=== PATIENT | female | born 1950 | race Caucasian/White ===

== ENCOUNTER 2021-01-07 13:09 | Outpatient (CLI) | payer MEDICARE, SELFPAY ==
--- NOTE | 2021-01-07 13:17 | XR_ITS ---
WS: [id number] CHEST 2 VIEWS HISTORY: CHRONIC OBSTRUCTIVE PULMONARY DISEASE COMPARISON: 08/04/2016 Lungs: Clear with no abnormality. No pleural effusion or pneumothorax. Cardiac size: Normal. Mediastinum/Aorta: Mild atherosclerosis aorta. No mediastinal widening. Bones: Numerous anchors in the RIGHT humeral head from rotator cuff repair. Moderate size hiatal hernia. XR/XR chest 2V* [id number] IMPRESSION: Stable chest. No acute cardiopulmonary disease.
== END 2021-01-07 13:10 | disposition home or self-care (01) ==
LOC: RADWPI 13:15
PROVIDERS: PCP Nurse Practitioner Family; Visit Provider Nurse Practitioner Family
DX: J44.9 Chronic obstructive pulmonary disease, unspecified (principal)
CPT/HCPCS: 71046

== ENCOUNTER 2021-03-30 02:24 | Emergency (ER) | payer MEDICARE, SELFPAY ==
[2021-03-30 02:29] VITALS: BP 166/81; PULSE 64; RESP 18; TEMP 36.7; O2SAT 97; BMI 29.7
--- NOTE | 2021-03-30 02:58 | XRR_ITS ---
PROCEDURE INFORMATION: Exam: XR Chest Exam date and time: 03/30/2021 3:37 AM Age: 70 years old Clinical indication: Other: Dizzy TECHNIQUE: Imaging protocol: XR of the chest. Views: 1 view. COMPARISON: CR XR chest 2V* [id number] 01/07/2021 1:21 PM FINDINGS: Lungs: See Heart/Mediastinum finding. Pleural spaces: Unremarkable. No pleural effusion. No pneumothorax. Heart/Mediastinum: Prominent hiatal hernia is present. Some strandy opacities are seen in the retrocardiac region likely representing atelectasis. Bones/joints: Unremarkable. XR/XR chest 1V portable [id number] IMPRESSION: 1. There are no acute chest findings. 2. Prominent hiatal hernia. Probable atelectasis superimposes over the hernia sac in the retrocardiac region.
--- NOTE | 2021-03-30 02:58 | ECG_ITS ---
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 Measurements Intervals [place] Rate: 57 P: 24 HI: 190 QRS: -17 QRSD: 112 T: 10 QT: 405 QTc: 397 Interpretive Statements SINUS BRADYCARDIA MODERATE INTRAVENTRICULAR CONDUCTION DELAY [110+ ms QRS DURATION] VOLTAGE CRITERIA FOR LVH [MEETS CRITERIA IN ONE OF: R(aVL), S(V1), R(V5), R(V5/V6)+S(V1)] No previous ECG available for comparison Electronically Signed On 03-30-2021 11:00:06 CDT by Davey Kim M.D. [id number]
[2021-03-30 03:39] VITALS: BP 176/96; PULSE 59; RESP 18; O2SAT 98
[2021-03-30 04:00] LABS: Hemoglobin 12.5 g/dL (11.5-15.3); Mean Corpuscular Volume 94.1 fL (81-99); Nucleated Red Blood Cells % 0 %; Red Cell Distribution Width 13.8 % (12.1-15.1)
[2021-03-30 04:02] VITALS: BP 147/85; BP 152/72; BP 162/85; PULSE 60; PULSE 63; PULSE 65
[2021-03-30 04:02] LABS: Basophils # 0.1 10^3/uL (0.0-0.1); Basophils % 0.8 %; Eosinophils # 0.1 10^3/uL (0.0-0.8); Eosinophils % 1.3 %; Hematocrit 38.6 % (37.0-47.0); Lymphocytes % 48.4 %; Mean Corpuscular HGB Conc 32.4 g/dL (30.0-36.0); Mean Corpuscular Hemoglobin 30.5 pg (28.0-34.0); Monocytes # 1.2 10^3/uL (0.2-0.9); Monocytes % 11.5 %; Neutrophils # 3.86 10^3/uL (1.8-7.7); Neutrophils % 37.8 %; Platelet Count 263 10^3/cmm (130-400); White Blood Count 10.2 10^3/uL (4.0-10.0)
[2021-03-30 04:25] LABS: Troponin(5th) Baseline 7 ng/L (0-10)
[2021-03-30 04:27] LABS: Alanine Aminotransferase 14 U/L (0-33); Albumin Level 4.4 g/dL (3.5-5.2); Alkaline Phosphatase 59 IU/L (35-105); Anion Gap 15.3 (5-19); Aspartate Amino Transferase 21 U/L (0-32); Blood Urea Nitrogen 26 mg/dL (8-23); Calcium 9.4 mg/dL (8.5-10.5); Carbon Dioxide 26 mmol/L (22-29); Chloride 100 mmol/L (98-107); Glomerular Filtration Rate 71.3 mL/min (90-130); Glucose 105 mg/dL (65-115); Osmolality Calculated 287 mOsm/kg (285-295); Potassium 5.3 mmol/L (3.5-5.1); Sodium 136 mmol/L (136-145); Total Bilirubin 0.3 mg/dL (0.15-1.2); Total Protein 6.4 g/dL (6.6-8.7)
[2021-03-30 04:40] LABS: Slide Review Slide Review Perform
[2021-03-30 04:51] VITALS: BP 128/64; PULSE 56; RESP 16; O2SAT 99
--- NOTE | 2021-03-30 06:46 | W.ED.DIZZY ---
HPI - Dizziness General: Chief Complaint: Dizziness Stated Complaint: high bp/dizzy/n Time Seen by Provider: 03/30/21 03:27 History of Present Illness: HPI Narrative: 70-year-old female who has been having trouble with her blood pressure. She was in her PCP office on with high blood pressure. She was given clonidine in the office which helped her blood pressure. She was then placed on spironolactone which has been a new drug for her. She currently takes valsartan, metoprolol, and spironolactone. Her blood pressure had been doing better, but this evening was elevated. She began to get dizzy with this. She denied any chest discomfort, shortness of breath, vision changes, or weakness. Dizziness seems to have resolved now. Her blood pressure was still high on arrival though. MD elicited complaint: dizziness and lightheadedness Pertinent past history: other Onset (ago): hour(s) Timing: gradual onset Severity: moderate Description: sense of movement and lightheadedness History of similar symptoms: Yes Exacerbating factors: nothing Course Vital Signs: Vital signs: Vital Signs Temperature 98.1 F 03/30/21 02:29 Pulse Rate 56 L 03/30/21 04:51 Respiratory Rate 16 03/30/21 04:51 Blood Pressure 128/64 03/30/21 04:51 Pulse Oximetry 99 03/30/21 04:51 MDM - Dizziness MDM Narrative: Medical decision making narrative: Blood pressure self resolved. Symptoms resolved as well. Laboratory is benign, save a minimally elevated potassium which is likely due to starting spironolactone. Patient was counseled that a BMP needs to be repeated later this week to make sure the calcium stays stable as well as the renal function she will watch her blood pressures twice daily, then return for any return of symptoms. She will be prescribed clonidine for breakthrough hypertension. She has been intolerant to JOSE LUIS inhibitors and amlodipine in the past Lab Data: Labs: Lab Results 03/30/21 03/30/21 03/30/21 Range/Units 03:50 03:50 03:50 WBC 10.2 H (4.0-10.0) 10^3/ uL RBC 4.10 (4.1-5.3) 10^6/u L Hgb 12.5 (11.5-15.3) g/dL Hct 38.6 (37.0-47.0) % MCV 94.1 (81-99) fL MCH 30.5 (28.0-34.0) pg MCHC 32.4 (30.0-36.0) g/dL RDW 13.8 (12.1-15.1) % Plt Count 263 (130-400) 10^3/c mm MPV 11.0 H (7.4-10.4) fL Neut % (Auto) 37.8 % Lymph % (Auto) 48.4 % Mower % (Auto) 11.5 % Eos % (Auto) 1.3 % Baso % (Auto) 0.8 % Neut # (Auto) 3.86 (1.8-7.7) 10^3/u L Lymph # (Auto) 5.0 H (0.8-4.8) 10^3/u L Mower # (Auto) 1.2 H (0.2-0.9) 10^3/u L Eos # (Auto) 0.1 (0.0-0.8) 10^3/u L Baso # (Auto) 0.1 (0.0-0.1) 10^3/u L Nucleated RBC % (a uto) 0 % Nucleated RBCs # 0.0 /100WBC Sodium 136 (136-145) mmol/L Potassium 5.3 H (3.5-5.1) mmol/L Chloride 100 (98-107) mmol/L Carbon Dioxide 26 (22-29) mmol/L Anion Gap 15.3 (5-19) BUN 26 H (8-23) mg/dL Creatinine 0.8 (0.5-0.9) mg/dL GFR Calculation 71.3 L (90-130) mL/min Glucose 105 (65-115) mg/dL Calculated Osmolal ity 287 (285-295) mOsm/k g Calcium 9.4 (8.5-10.5) mg/dL Total Bilirubin 0.3 (0.15-1.2) mg/dL AST 21 (0-32) U/L ALT 14 (0-33) U/L Alkaline Phosphata se 59 (35-105) IU/L Troponin T Baselin e 7 (0-10) ng/L Total Protein 6.4 L (6.6-8.7) g/dL Albumin 4.4 (3.5-5.2) g/dL Globulin 2.0 (1.3-4.6) g/dL Discharge Plan Discharge Patient Disposition: Home Clinical Impression: Hypertension Qualifiers: Hypertension type: essential hypertension Qualified Code(s): I10 - Essential (primary) hypertension Condition: Stable Prescriptions: New clonidine HCl 0.1 mg tablet 0.1 mg PO Q8H PRN (Reason: hypertensive emergency) Qty: 60 RF: 0 Discharge Orders: Discharge ED (Routine); Ordered 03/30/21 Ordered By: Rafal Snyder Referrals: Nieves Perera NP [Primary Care Provider] - 4-7 days Discharge Diet: Advance as tolerated Discharge Activity: Increase activity as tolerated Patient Instructions: Hypertension (ED) Activity Restrictions/Additional Instructions: Monitor your blood pressure twice daily. If the top number of your blood pressure is significantly elevated, above 160 systolic, you may take one of the medication pills you were prescribed this morning. Follow-up with your doctor regarding further management of your blood pressure. Return to the emergency department for headache, vision changes, weakness, mental status changes, or chest pain or shortness of breath. Return also for any other concerning symptoms. Coding Level of Care Code ED Quality Review Trainer for Xavier Rosario
== END 2021-03-30 04:53 | disposition home or self-care (01) ==
PROVIDERS: Registered Nurse; Emergency Provider Emergency Medicine; PCP Nurse Practitioner Family
DX: I10 Essential (primary) hypertension (principal)
CPT/HCPCS: 71045; 80053; 84484; 85025; 93005; 99283

== ENCOUNTER 2021-10-05 09:28 | Outpatient (CLI) | payer MEDICARE, SELFPAY ==
--- NOTE | 2021-10-05 09:34 | CT_ITS ---
WS: [id number] LDCT LUNG CANCER SCREENING HISTORY: HX OF TOBACCO USE TECHNIQUE: Axial imaging performed from the apices to 1 cm below the costophrenic angles. Coronal and sagittal reformats are submitted with axial MIP series. All CT scans at [facility] use at least one of these dose optimization techniques: automated exposure control; mA and/or kV adjustment per patient size (includes targeted exams where dose is matched to clinical indication); or iterativ e reconstruction. DLP: 54.19 mGy.cm DIvol: 1.58 mGy COMPARISON: 10/12/2019 and 10/17/2018 Diagnostic quality: Satisfactory Lung Nodules: 2 to 4 mm noncalcified pulmonary nodules are identified within the RIGHT upper, middle and lower lobes. No increase in size since 10/17/2018. No new pulmonary nodule. No new mass or pneumo natacha. Lungs: Pulmonary hyperexpansion from emphysema. Heart: Moderate enlargement of the heart. No pericardial effusion. Other findings: Moderate atherosclerosis within the coronary arteries. Mild atherosclerosis and ectas ia of the aorta. No appreciable adenopathy. Large hiatal hernia. Majority the stomach is intrathoraci c. Mild increase in the thoracic kyphosis. CT/CT lung screening [id number] IMPRESSION: LUNG-RADS: 2-Benign Appearance or Behavior FOLLOW UP: 12 Month: Continue annual screening with LDCT OTHER FINDINGS (S MODIFIER): None.
== END 2021-10-05 09:29 | disposition home or self-care (01) ==
LOC: CT 09:30
PROVIDERS: PCP Nurse Practitioner Family; Visit Provider Nurse Practitioner Family
DX: Z12.2 Encounter for screening for malignant neoplasm of respiratory organs (principal); R91.1 Solitary pulmonary nodule; Z87.891 Personal history of nicotine dependence
CPT/HCPCS: 71271

== ENCOUNTER 2021-12-16 11:08 | Outpatient (CLI) | payer MEDICARE, SELFPAY ==
--- NOTE | 2021-12-16 11:15 | MM_ITS ---
WS: [id number] BILATERAL SCREENING DIGITAL MAMMOGRAM WITH CAD HISTORY: SCREENING COMPARISON: 10/17/2018 and 09/08/2016 Bilateral CC and MLO views submitted. Computer aided detection analyzed. Breast composition: There are scattered areas of fibroglandular density. No suspicious masses, microc alcifications or architectural distortion. Small bilateral calcifications. Nodules in the LEFT breast are stable. MM/[place] [id number] IMPRESSION: BI-RADS: 2-Benign FOLLOW UP: 1 Year Follow-up
--- NOTE | 2021-12-16 11:44 | XR_ITS ---
WS: [id number] SCREENING DEXA SCAN [employer] CLINICAL INFORMATION: SCREENING FOR OSTEOPOROSIS COMPARISON: FINDINGS: The L1-L4 bone mineral density measures 1.241 g/cm2. This corresponds to a T score score of 0.5 and Z score of 1.4. Left femoral neck bone mineral density measures 0.951 g/cm2. This corresponds to a T score of -0.5 an d Z score of 0.4. Right femoral neck bone mineral density measures 0.937 g/cm2. This corresponds to a T score -0.6of an d Z score of 0.3. Mean femoral neck bone mineral density measures 0.944 g/cm2. This corresponds to a T score of -0.5 an d Z score of 0.4. XR/XR DEXA axial skeleton* [id number] IMPRESSION: Normal bone mineralization. Patient's FRAX calculated 10 year probability for major osteoporotic fracture i s 8.2 % and osteoporotic hip fracture is 0.7%.
== END 2021-12-16 11:09 | disposition home or self-care (01) ==
PROVIDERS: PCP Nurse Practitioner Family; Visit Provider Nurse Practitioner Family
DX: Z13.820 Encounter for screening for osteoporosis (principal); Z12.31 Encounter for screening mammogram for malignant neoplasm of breast; Z20.822 Contact with and (suspected) exposure to COVID-19
CPT/HCPCS: 77067; 77080; 87635

== ENCOUNTER 2021-12-21 06:44 | Day surgery (SDC) | payer MEDICARE, SELFPAY ==
--- NOTE | 2021-12-21 06:59 | P.ANESASSM_ITS ---
Pre-Anesthetic Assessment Height/Weight: Height 1.7 m Weight 87.09 kg Preop Diagnosis: RUQ pain Operation Date: 12/21/21 08:45 Proposed Procedures p [id number]/right upper quad pain R10.11(Not Applicable) - Abnre Hunter MD Familial anesthetic complications: none Was Beta Tracey taken within 24 hours: Yes Was Clonidine taken within 24 hours: N/A Last intake: > 8 hrs Social No alcohol and No tobacco Exam alert, oriented x 3, clear to auscultation bilaterally and regular rate & rhythm murmur Airway Cervical ROM: within normal limits Mallampati: Class I Dentition: false Pulmonary Chronic Obstructive Pulmonary Disease CV/HEM hx of rheumatic fever, no chest pains, syncope, sob, able to achieve > 4 METS GI Gastroesophageal Reflux Disease and Hiatal Hernia Anesthetic Plan ASA status: 2 Anesthesia: MAC Medications/Allergies Home Medications Medication Instructions Recorded Confirmed Last Taken Type clonidine HCl 0.1 mg tablet 0.1 mg PO Q8H PRN #60 tab 03/30/21 12/17/21 Unknown Rx azelastine 137 mcg (0.1 %) nasal 1 spray INTRANASAL DAILY ml 04/23/21 12/17/21 Unknown History spray aerosol fluticasone propionate 50 1 spray INTRANASAL DAILY 04/23/21 12/17/21 Unknown History mcg/actuation nasal spray,suspension (Allergy Relief (fluticasone)) metoprolol succinate 50 mg 50 mg PO DAILY 04/23/21 12/17/21 Unknown History tablet,extended release 24 hr valsartan 160 mg tablet 320 mg PO DAILY 04/23/21 12/17/21 Unknown History indapamide 2.5 mg tablet 2.5 mg PO QAM 12/15/21 12/17/21 Unknown History omeprazole 20 mg capsule,delayed 20 mg PO DAILY 12/15/21 12/17/21 Unknown History release umeclidinium 62.5 mcg-vilanterol 1 inh INHALATION DAILY 12/17/21 12/17/21 Unknown History 25 mcg/actuation powdr for inhalation (Anoro Ellipta) Allergies Allergy/AdvReac Type Severity Reaction Status Date / Time amlodipine Allergy Severe rash and Verified 12/17/21 13:24 swelling budesonide [From Symbicort] Allergy Severe hives Verified 12/17/21 13:24 fluticasone furoate Allergy Severe hypertensio Verified 12/17/21 13:24 [From Trelegy Ellipta] n formoterol [From Symbicort] Allergy Severe hives Verified 12/17/21 13:24 umeclidinium Allergy Severe hypertensio Verified 12/17/21 13:24 [From Trelegy Ellipta] n vilanterol Allergy Severe hypertensio Verified 12/17/21 13:24 [From Trelegy Ellipta] n lisinopril Allergy Intermediate dry cough Verified 12/17/21 13:24 [facility] Anesthesia Social History Smoking and tobacco status: never smoked Data Anesthesia Cardiac Studies: No Data to Display
[2021-12-21 07:37] VITALS: BP 138/58; PULSE 67; RESP 16; TEMP 37; O2SAT 97
[2021-12-21] MEDS: sodium chloride 0.9% 1,000 ML 30 ML IV (07:45)
--- NOTE | 2021-12-21 07:47 | P.HP_ITS ---
Same Day Surgery H&P Indication for Procedure/HPI DATE OF PROCEDURE: December 21, 2021 CHIEF COMPLAINT/INDICATIONFOR SURGICAL PROCEDURE: Epigastric pain PREOP DIAGNOSIS: RUQ pain PLANNED PROCEDURE: Operation Date: 12/21/21 08:45 Proposed Procedures p [id number]/right upper quad pain R10.11(Not Applicable) - Abner Hunter MD Medications/Allergies* Home Medications Medication Instructions Recorded Confirmed Type azelastine 137 mcg (0.1 %) nasal 1 spray INTRANASAL DAILY ml 04/23/21 12/21/21 History spray aerosol fluticasone propionate 50 1 spray INTRANASAL DAILY 04/23/21 12/21/21 History mcg/actuation nasal spray,suspension (Allergy Relief (fluticasone)) metoprolol succinate 50 mg 50 mg PO DAILY 04/23/21 12/21/21 History tablet,extended release 24 hr valsartan 160 mg tablet 320 mg PO DAILY 04/23/21 12/21/21 History indapamide 2.5 mg tablet 2.5 mg PO QAM 12/15/21 12/21/21 History omeprazole 20 mg capsule,delayed 20 mg PO DAILY 12/15/21 12/21/21 History release umeclidinium 62.5 mcg-vilanterol 1 inh INHALATION DAILY 12/17/21 12/21/21 History 25 mcg/actuation powdr for inhalation (Anoro Ellipta) Allergies/Adverse Reactions Allergy/AdvReac Type Severity Reaction Status Date / Time amlodipine Allergy Severe rash and Verified 12/17/21 13:24 swelling budesonide [From Symbicort] Allergy Severe hives Verified 12/17/21 13:24 fluticasone furoate Allergy Severe hypertensio Verified 12/17/21 13:24 [From Trelegy Ellipta] n formoterol [From Symbicort] Allergy Severe hives Verified 12/17/21 13:24 umeclidinium Allergy Severe hypertensio Verified 12/17/21 13:24 [From Trelegy Ellipta] n vilanterol Allergy Severe hypertensio Verified 12/17/21 13:24 [From Trelegy Ellipta] n lisinopril Allergy Intermediate dry cough Verified 12/17/21 13:24 Current Medications: Generic Name Dose Route Start Last Admin Trade Name Freq PRN Reason Stop Dose Admin Sodium Chloride 1,000 mls @ 30 mls/hr 12/21/21 07:00 12/21/21 07:45 Sodium Chloride 0.9% IV 30 mls/hr .Q24H DEBI Administration Pertinent History/Comorbid Conditions* Social History Smoking and tobacco status: never smoked Pertinent Exam Findings alert, oriented x 3, clear to auscultation bilaterally, regular rate & rhythm, operative site marked and procedure specific exam findings Recommendations Surgery/Procedure today Coding Level of Care Code Acute Chronic Condition Nurse for Xavier Rosario
[2021-12-21 09:18] VITALS: BP 103/62; PULSE 66; RESP 13; TEMP 36.2; O2SAT 99
--- NOTE | 2021-12-21 09:19 | FL_ITS ---
WS: [id number] Exam: FL barium swallow [id number] Date/Time of Exam: 12/21/2021 9:19 AM Reason For Exam: Large paraesophageal hernia on EGD Swallowing function was normal. The esophagus is smooth in contour. No sign of esophageal stricture o r mass. A large paraesophageal hiatal hernia is noted which comprises almost 2/3 of the stomach. Yosi um spills freely into the duodenal bulb and small bowel without obstruction. Prominent gastric mucosa probably indicates gastritis. FL/FL barium swallow [id number] IMPRESSION: 1. Patent esophagus. No evidence of the esophageal stricture or mass. Normal es ophageal motility. No reflux identified during fluoroscopy. 2. Large paraesophageal hiatal hernia comprising about two thirds of the stomac h. Probable gastritis. Fluoroscopy time: 1.4 minutes
--- NOTE | 2021-12-21 09:22 | ANE.PACU2 ---
Inpatient post-anesthesia follow up: Airway intact: Yes Vital signs: Temperature 98.6 F Pulse Rate 67 Respiratory Rate 16 Blood Pressure 138/58 Pulse Oximetry 97 Oxygen Delivery Me thod Room Air Oxygen Flow Rate Fraction of Inspir ed Oxygen Hydration adequate: Yes Nausea and vomiting: No Pain level: 1 Mental status: Baseline
[2021-12-21 09:29] VITALS: BP 111/58; PULSE 63; RESP 16; O2SAT 99
== END 2021-12-21 10:20 | disposition home or self-care (01) ==
PROVIDERS: PCP Nurse Practitioner Family; Visit Provider Internal Medicine
PROC: 0DJ08ZZ Inspection of Upper Intestinal Tract, Via Natural or Artificial Opening Endoscopic (ICD-10-PCS; CPT 43235; principal; 2021-12-21 08:45)
DX: R10.11 Right upper quadrant pain (principal); K44.9 Diaphragmatic hernia without obstruction or gangrene; J44.9 Chronic obstructive pulmonary disease, unspecified; K21.9 Gastro-esophageal reflux disease without esophagitis
CPT/HCPCS: 43235; 74220; J2704; J7030

== ENCOUNTER 2021-12-23 07:42 | Outpatient (CLI) | payer MEDICARE, SELFPAY ==
--- NOTE | 2021-12-23 07:54 | USCV_ITS ---
Liliana Oneil Age: 71 Gender: F : 1950 Exam Date: 12/23/2021 08:39 Ordering Phys: Nieves Perera NP Technologist: Skyler Guy Exam Location: [facility] [place] Indication: central chest pain BP: 140 / 64 HR: 61 Rhythm: Sinus Technical Quality: Adequate MEASUREMENTS (Male / Female) Normal Values 2D ECHO LV Diastolic Diameter PLAX 3.9 cm 4.2 - 5.9 / 3.9 - 5.3 cm LV Systolic Diameter PLAX 2.8 cm IVS Diastolic Thickness 1.1 cm 0.6 - 1.0 / 0.6 - 0.9 cm IVS Systolic Thickness 1.6 cm LVPW Diastolic Thickness 1.5 cm 0.6 - 1.0 / 0.6 - 0.9 cm LVPW Systolic Thickness 1.7 cm LVOT Diameter 2.0 cm LV Ejection Fraction 2D Teich 53.7 % LV Ejection Fraction MOD 2C 47.3 % LV Ejection Fraction 2C AL 47.9 % LA Diameter 3.2 cm LA Width 4.6 cm LA Height 5.1 cm RA Width 3.7 cm RA Height 5.3 cm Aorta at Sinotubular Diameter 3.0 cm M-MODE Aortic Annulus Diameter 3.1 cm LA Ao Ratio MM 0.9 MV E Point Septal Separation 0.5 cm DOPPLER AV Peak Velocity 188.0 cm/s LVOT Peak Velocity 120.0 cm/s AV Area Cont Eq vti 1.9 cm squared AV Area Cont Eq pk 2.0 cm squared MV Area PHT 4.1 cm squared Mitral E to A Ratio 0.9 MV E' Velocity 56.5 cm/s Mitral E to MV E' Ratio 9.0 Mitral E to LV E' Lateral Ratio 7.5 Mitral E to LV E' Septal Ratio 11.5 TR Peak Velocity 362.3 cm/s TR Peak Gradient 52.5 mmHg TR Mean Velocity 231.9 cm/s TR Mean Gradient 23.4 mmHg TR Velocity Time Integral 91.8 cm Right Atrial Pressure 3.0 mmHg Pulmonary Artery Systolic Pressu 55.5 mmHg RV Acceleration Time 0.1 s RV Ejection Time 0.3 s RV AcT/ET 0.4 FINDINGS Left Ventricle Normal left ventricular size and systolic function, EF 55 %. Mild left ventricular hypertrophy. No regional wall motion abnormalities. Grade I/IV diastolic dysfunction (abnormal relaxation filling pattern), normal to mildly elevated filling pressures. Right Ventricle The right ventricle is normal in size and function. Right Atrium The right atrium is normal in size. Left Atrium Mildly increased left atrial size. Mitral Valve Thickened mitral valve. Aortic Valve Rbfz-tt-pzggvyrr aortic valve regurgitation. Tricuspid Valve Mild tricuspid valve regurgitation. Pulmonic Valve Pulmonic valve not well visualized. Pericardium Normal pericardium without effusion. Aorta Plaque seen in the ascending aorta. CONCLUSIONS Normal left ventricular size and systolic function, EF 55 %. Mild left ventricular hypertrophy. No regional wall motion abnormalities. Grade I/IV diastolic dysfunction (abnormal relaxation filling pattern), normal to mildly elevated filling pressures. Mildly increased left atrial size. Ebmn-ui-kxcqethn aortic valve regurgitation. Thickened mitral valve. There is no pericardial effusion. There are no intracardiac masses. No previous study is available for comparison. Dr Mehran Philip MD FACC (Electronically Signed) Final Date: 23 December 2021 18:05 S
== END 2021-12-23 07:43 | disposition home or self-care (01) ==
LOC: RAD 07:45
PROVIDERS: PCP Nurse Practitioner Family; Visit Provider Nurse Practitioner Family
DX: R07.9 Chest pain, unspecified (principal); I08.0 Rheumatic disorders of both mitral and aortic valves
CPT/HCPCS: 93306

== ENCOUNTER 2022-01-26 08:17 | Outpatient (CLI) | payer MEDICARE, SELFPAY ==
--- NOTE | 2022-01-26 08:30 | US_ITS ---
WS: [id number] RIGHT UPPER QUADRANT ULTRASOUND HISTORY: Post prandial RUQ pain COMPARISON: 01/17/2018 Liver: 14.1 cm in length. Normal size liver. Coarse echotexture. No mass identified but the entire li joaquin is not well visualized. No bile duct dilatation. Portal Vein: Normal hepatopetal flow with monophasic waveform. Gallbladder: Normally distended gallbladder with no stones or wall thickening. CBD: 0.4 cm Pancreas: Poorly visualized. Right kidney: 9.2 cm in length. Normal size and echogenicity. No hydronephrosis or mass. Aorta and IVC: Unremarkable abdominal aorta and IVC. No ascites. US/US gall bladder [id number] IMPRESSION: 1. Technically difficult evaluation of the RIGHT upper quadrant. 2. Gallbladder appears negative. 3. Mild hepatic steatosis. The entire liver is not well visualized.
== END 2022-01-26 08:18 | disposition home or self-care (01) ==
LOC: RAD 08:18
PROVIDERS: PCP Nurse Practitioner Family; Visit Provider Internal Medicine
DX: R10.11 Right upper quadrant pain (principal); K76.0 Fatty (change of) liver, not elsewhere classified
CPT/HCPCS: 76705

== ENCOUNTER → 2022-01-27 15:05 | Outpatient (BNVA) | payer MEDICARE, SELFPAY | PROVIDERS: PCP Nurse Practitioner Family; Visit Provider Surgery | DX: K44.0 Diaphragmatic hernia with obstruction, without gangrene (principal) | CPT/HCPCS: 80053; 85025 ==

== ENCOUNTER → 2022-02-03 13:48 | Day surgery (SDC) | payer MEDICARE, SELFPAY | LOC: OPS 02-05 09:45 | PROVIDERS: PCP Nurse Practitioner Family; Visit Provider Surgery | DX: Z01.818 Encounter for other preprocedural examination (principal) | CPT/HCPCS: 93005 ==

== ENCOUNTER 2022-02-09 16:11 | Observation (INO) | payer MEDICARE, SELFPAY ==
--- NOTE | 2022-02-03 13:42 | ANES.PREANE2 ---
Pre-Anesthetic Assessment Height/Weight: Height 1.7 m Preop Diagnosis: RUQ pain Operation Date: 02/09/22 10:15 Proposed Procedures p Lap paraesophageal hernia repair with poss mesh [id number](Not Applicable) - Jose E Stout MD s EGD(Not Applicable) - Jose E Stout MD Familial anesthetic complications: none Social No alcohol and No tobacco Exam alert, oriented x 3, clear to auscultation bilaterally and regular rate & rhythm Airway Mallampati: Class II Dentition: false Pulmonary Chronic Obstructive Pulmonary Disease CV/HEM Hypertension rheumatic fever as child, echo 2020 CONCLUSIONS ?Normal left ventricular size and systolic function, EF 55 %. ?Mild left ventricular hypertrophy. No regional wall motion ?abnormalities. Grade I/IV diastolic dysfunction (abnormal ?relaxation filling pattern), normal to mildly elevated filling ?pressures. ?Mildly increased left atrial size. ?Ychy-xc-fpikcivi aortic valve regurgitation. ?Thickened mitral valve. ?There is no pericardial effusion. ?There are no intracardiac masses. ?No previous study is available for comparison. GI Gastroesophageal Reflux Disease Anesthetic Plan ASA status: 3 Anesthesia: General Medications/Allergies Home Medications Medication Instructions Recorded Confirmed Last Taken Type clonidine HCl 0.1 mg tablet 0.1 mg PO Q8H PRN #60 tab 03/30/21 01/29/22 Unknown Rx azelastine 137 mcg (0.1 %) nasal 1 spray INTRANASAL DAILY ml 04/23/21 01/29/22 12/21/21 History spray aerosol fluticasone propionate 50 1 spray INTRANASAL DAILY 04/23/21 01/29/22 12/21/21 History mcg/actuation nasal spray,suspension (Allergy Relief (fluticasone)) metoprolol succinate 50 mg 50 mg PO DAILY 04/23/21 01/29/22 12/20/21 History tablet,extended release 24 hr valsartan 160 mg tablet 320 mg PO DAILY 04/23/21 01/29/22 12/20/21 History indapamide 2.5 mg tablet 2.5 mg PO QAM 12/15/21 01/29/22 12/21/21 History omeprazole 20 mg capsule,delayed 20 mg PO DAILY 12/15/21 01/29/22 12/21/21 History release umeclidinium 62.5 mcg-vilanterol 1 inh INHALATION DAILY 12/17/21 01/29/22 12/21/21 History 25 mcg/actuation powdr for inhalation (Anoro Ellipta) Allergies Allergy/AdvReac Type Severity Reaction Status Date / Time amlodipine Allergy Severe rash and Verified 01/29/22 15:49 swelling budesonide [From Symbicort] Allergy Severe hives Verified 01/29/22 15:49 fluticasone furoate Allergy Severe hypertensio Verified 01/29/22 15:49 [From Trelegy Ellipta] n formoterol [From Symbicort] Allergy Severe hives Verified 01/29/22 15:49 umeclidinium Allergy Severe hypertensio Verified 01/29/22 15:49 [From Trelegy Ellipta] n vilanterol Allergy Severe hypertensio Verified 01/29/22 15:49 [From Trelegy Ellipta] n lisinopril Allergy Intermediate dry cough Verified 01/29/22 15:49 PFSH Anesthesia Family History Other Hypertension Social History Smoking and tobacco status: never smoked Data Anesthesia Cardiac Studies: Echocardiogram 12/23/21
--- NOTE | 2022-02-03 13:48 | ECG_ITS ---
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 Measurements Intervals Edgar Rate: 79 P: 43 OH: 169 QRS: -15 QRSD: 113 T: 54 QT: 373 QTc: 428 Interpretive Statements SINUS RHYTHM MODERATE INTRAVENTRICULAR CONDUCTION DELAY [110+ ms QRS DURATION] MODERATE VOLTAGE CRITERIA FOR LVH, CONSIDER NORMAL VARIANT NONSPECIFIC T-WAVE ABNORMALITY Compared to ECG 03/30/2021 03:39:43 T-wave abnormality now present Sinus bradycardia no longer present Electronically Signed On 02-03-2022 18:30:09 CDT by Shalini Lubin M.D. [id number]
[2022-02-03 13:52] VITALS: BMI 28.1
[2022-02-09] VITALS (20 sets, daily range): BP systolic 91–151; BP diastolic 48–67; PULSE 67–91; RESP 16–22; TEMP 35.6–37.1; O2SAT 92–99
[2022-02-09] MEDS: sodium chloride 0.9% 1,000 ML 30 ML IV (08:47)
[2022-02-09] MEDS: acetaminophen 1,000 MG/100 ML PIGGYBACK 400 MG IV ×2 (08:47→22:29)
[2022-02-09] MEDS: heparin 5,000 unit/mL INJ 1 mL 3000 UNIT SUBCUT (08:59)
--- NOTE | 2022-02-09 09:57 | W.PM.OPSUD ---
Surgery/Procedure H&P Update DATE OF PROCEDURE: February 09, 2022 DATE H&P PERFORMED: 01/27/22 H&P UPDATE INFORMATION: I have reviewed H&P completed within last 30 days, I have examined patient prior to procedure, No changes to prior documentation and Changes to prior documentation as noted here (Patient lost 8 pounds since she has been on liquid protein diet) PREOP DIAGNOSIS: Paraesophageal hernia PRIMARY INDICATION FOR PROCEDURE: The same PLANNED PROCEDURE: Operation Date: 02/09/22 10:15 Proposed Procedures p Lap paraesophageal hernia repair with poss mesh [id number](Not Applicable) - Jose E Stout MD s EGD(Not Applicable) - Jose E Stout MD
--- NOTE | 2022-02-09 10:22 | P.ANESUD_ITS ---
Pre-Anesthetic Update Pre-Anesthetic Assessment: Date of Surgery/Procedure: 02/09/22 Preop Alyssa gnosis: Paraesophageal hernia Proposed Procedure: Operation Date: 02/09/22 10:15 Proposed Procedures p Lap paraesophageal hernia repair with poss mesh [id number](Not Applicable) - Jose E Stout MD s EGD(Not Applicable) - Jose E Stout MD Any changes to Pre-Anesthetic Assessment?: No Last Intake: Intake Last Liquid Date 02/08/22 Last Liquid Time 20:00 Last Solid Date 02/08/22 Last Solid Time 18:00 Vitals: Temperature 97.4 F L 02/09/22 08:42 Temperature Source Temporal Artery S can 02/09/22 08:42 Pulse Rate 67 02/09/22 08:42 Respiratory Rate 18 02/09/22 08:42 Blood Pressure 151/59 02/09/22 08:42 Blood Pressure Tyesha n 89 02/09/22 08:42 Pulse Oximetry 96 02/09/22 08:42 Oxygen Delivery Me thod 02/09/22 08:45 Exam: Pre-Anes Outpt Exam: alert, oriented x 3, clear to auscultation bilaterally and regular rate & rhythm Cardiac Studies: Echocardiogram 12/23/21
[2022-02-09] MEDS: sodium chloride 0.9% 100 mL Bag 50 ML XX (12:25)
--- NOTE | 2022-02-09 13:06 | SUR.OPER ---
attempted to contact with surgical progress, no answer.
--- NOTE | 2022-02-09 16:03 | P.OP_ITS ---
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 SCDs confirmed to be functioning, preoperative antibiotics administered per protocol, and beta caleb protocol was confirmed patient was placed in a low lithotomy position, both arms were tucked to the sides.and all pressure points were padded, a Graves catheter was placed by the circulating nurse that revealed clear urine. The patient was appropriately secured to the operating table, and I asked anesthesia to swing the table [id number] in different positions that the patient is appropriately secured to the OR table which it was the case. Prep and drape of the abdomen was done under the usual sterile technique, started by 1.2 cm transverse incision with 15 blade knife, 12 cm below the xiphoid and 3 cm to the left of the midline, followed by that a 5 mm optical trocar was used under direct vision and placed in the peritoneal cavity without difficulty. The peritoneal cavity was insufflated with CO2 gas up to 15 mmHg, followed by that an angled scope 10 mm was inserted in the abdominal cavity, the abdomen was surveyed there was no evidence of blood or fluid or other evidence of intra-abdominal injury Following that two 5 mm ports were placed one at 10 cm from the xiphoid process under the left subcostal region and the other one was placed at the left flank. A 12 mm port was placed in the subxiphoid region towards the right upper subcostal region. A right upper quadrant incision was created with a 15 blade knife and the obturator of 5 mm trocar was used to have an access to the abdominal cavity under direct visualization where a Chrissie's liver retractor was introduced through this stab incision placed underneath the left lobe of the liver and onto the diaphragm to lift the liver up and liver retractor was placed under direct visualization to lift the liver up and helped greatly for appropriate visualization of the hiatus. Patient was placed in steep reverse T Reese and I stood between the patient's legs. The index 5 mm trocar was switched to 12 mm trocar under direct vision I Started at that point delivering the Hiatal Hernia content most of the stomach was opened the chest about two third associated also with a mediastinal lipoma. Started dissecting using the harmonic scalpel near the caudate lobe and right deysi of the diaphragm where it was identified. Dissection was continued around the border of the deysi from the right side to the left side circumferentially, dissection was done as the sac was adherent to the stomach and up in the chest. The mediastinal lipoma was dissected and excised. And was sent for permanent pathology After appropriate dissection circumferentially and the short gastrics were taken down, a Raleigh drain was passed behind the esophagus from the right side to the left side ends of the Raleigh was secured in place and was held down to assist in retraction for better navigation. At that point once dissection and reduction of the hernia was complete, a portion of the hernia sac was dissected was taken out and sent for pathology for permanent. Few 5 mm clips were used to approximate the pleural edges in the chest There was 3-4 cm of the esophagus now is intra-abdominal after appropriate dissection being with no tension. A well-lubricated bougie was inserted 54 Burmese in size, by the anesthesiologist without difficult, to be used as a template to prevent narrowing of the esophagus. The posterior crura was reapproximated with 2-0 Ethibond sutures with pledgets.This closed the hiatal defect leaving an opening that of the submits the esophagus to pass through comfortably. Additional anterior sutures were applied to approximate the edges of the crura. I found a loose fundus that I was able to grab the stomach around the GE junction from the left side to the right side.Shoeshine technique was applied at this point to make sure that the wrap carries no tension.First 2 stitches were taken stomach esophagus stomach, the the third stitch was stomach to stomach using 2-0 silk sutures about 1 cm apart. Approximation of the crura anteriorly was obtained by 2-0 silk sutures interrupted A 360? fundoplication was noted from securing the fundus to either side of the esophagus.The length was about 3-4 cm and followed by that an upper GI scope by me after I scrubbed out was introduced from the mouth down to the esophagus to the stomach preceded by bougie was taken out to make sure that there was no injury damage happened with the bougie, there was no blood on the tip of the bougie as well,nothing of significance, stomach looked fine was no injury and the wrap looked appropriate from within there was no evidence of leak. I scrubbed back in after adequate hemostasis the liver retractor was taken out under direct visualization, final laparoscopic survey was done showing no injuries to intra-abdominal structures, the 12 mm trocar sites were closed by Miguel Stuart under direct visualization using #1 PDS sutures,following that a TAP Block was done using Exparel then all ports were removed and both 12 mm ports.The rest of the stab incisions were closed by skin raisa, followed by Band-Aids and patient tolerated the procedure well. Bilateral TAP (transversus abdominous plain peripheral nerve block )block using Exparel 20 mL Exparel 40 ml Normal saline 20 ml bupivacaine 0.25% 30 mL on each side injected 20 mL injected the port sites The count of instruments,needles and sponges was completed at the end of the procedure. Graves catheter was kept at the end of the procedure without complications I was present for the whole entire procedure patient was extubated and was taken to the recovery room in stable condition.
--- NOTE | 2022-02-09 16:36 | SUR.PHASEI ---
1627 SCDs on pump and working
--- NOTE | 2022-02-09 17:13 | ANE.PACU2 ---
Inpatient post-anesthesia follow up: Airway intact: Yes Vital signs: Temperature 97.0 F Pulse Rate 73 Respiratory Rate 21 Blood Pressure 105/56 Pulse Oximetry 95 Oxygen Delivery Me thod Nasal Cannula Oxygen Flow Rate 3 Fraction of Inspir ed Oxygen Hydration adequate: Yes Nausea and vomiting: No Pain level: 2 Mental status: Baseline
[2022-02-09] MEDS: scopolamine 1.5 Patch 1 PATCH TRANSDERMA (17:57)
[2022-02-09] MEDS: sodium chloride 0.9% 1,000 ML 75 ML IV (17:57)
[2022-02-09] MEDS: ondansetron 2 mg/ML SDV 2 mL 4 MG IVP (22:30)
[2022-02-10] MEDS: ampicillin-sulbactam 3 GM in sodium chloride 0.9% (plus) 50 ML IV ×4 (02:09→19:35)
[2022-02-10 03:12] LABS: Glucose Point of Care 142 mg/dL (70-110)
[2022-02-10 03:16] VITALS: RESP 18
[2022-02-10] MEDS: morphine 4 mg/mL SDV 1 mL 2 MG IVP (03:16)
[2022-02-10 03:27] LABS: Hematocrit 33.5 % (37.0-47.0); Hemoglobin 10.6 g/dL (11.5-15.3)
[2022-02-10 03:46] LABS: Anion Gap 16.3 (5-19); Blood Urea Nitrogen 19 mg/dL (8-23); Calcium 8.3 mg/dL (8.5-10.5); Carbon Dioxide 22 mmol/L (22-29); Chloride 106 mmol/L (98-107); Creatinine Clr Calc Pharmacy 72.9426; Glomerular Filtration Rate 71.1 mL/min (90-130); Glucose 150 mg/dL (65-115); Osmolality Calculated 295 mOsm/kg (285-295); Potassium 4.3 mmol/L (3.5-5.1); Sodium 140 mmol/L (136-145)
[2022-02-10 04:00] VITALS: BP 124/86; PULSE 86; RESP 18; TEMP 37; O2SAT 94
[2022-02-10] MEDS: sodium chloride 0.9% 1,000 ML 75 ML IV (05:26)
[2022-02-10] MEDS: heparin 5,000 unit/mL INJ 1 mL 5000 UNIT SUBCUT ×2 (05:28→14:23)
--- NOTE | 2022-02-10 06:59 | PM.PN ---
Subjective Subjective: Patient was seen and examined, seems to be resting she is little bit sore which is expected. Had one-time episode of burping but otherwise no acute events overnight. Maintained to have stable vital signs and good urine output. Labs are appropriate Medications: Reviewed: Yes Vitals/I&O/Wt Last Vital Signs Temp 98.6 F 02/10/22 04:00 Pulse 86 02/10/22 04:00 Resp 18 02/10/22 04:00 BP 124/86 02/10/22 04:00 Pulse Ox 94 02/10/22 04:00 02/09/22 02/09/22 02/10/22 14:59 22:59 06:59 Intake Total 160 / 160 2000 / 2160 1011.25 / 3171.25 Output Total 275 / 275 600 / 875 Balance 160 / 160 1725 / 1885 411.25 / 2296.25 Physical Exam Narrative: Patient is conscious alert oriented X3 No apparent distress BMI 28.2 Head and neck examination PERRLA no masses no cervical lymphadenopathy no jaundice Cardiac examination audible S1-S2 no murmurs no gallops no arrhythmias Chest is clear bilateral,abscence of Rhonchi or wheezes, mild upper chest emphysema Abdomen nontender except at the incision site nondistended soft no organomegaly guarding or rigidity/no signs of peritonitis Graves catheter in place with clear urine Extremities no cyanosis no clubbing no edema Urinary Catheter Management: Graves: Cath Placed During This Visit: yes Reason for Continuing Indwelling Catheter: Other Urinary Catheter Date of Insertion: 02/09/22 Urinary Catheter Time of Insertion: 10:25 Data : 02/10/22 02:53 02/10/22 02:53 A&P Assessment and plan (1) Status post laparoscopic Colin fundoplication: Assessment 71-year-old female patient status post laparoscopic paraesophageal hernia repair and Colin fundoplication 02/11/2022. Plan Continue n.p.o. status till upper GI study is done once this is cleared we will start the patient on post Colin diet. DC Graves catheter Continued antibiotics for couple more doses to the extensive dissection Wean oxygen to room air Encourage ambulation with assistance Depends on patient's clinical progress today there is a good chance of sending her home Assurance and education All questions have been answered and all concerns have been addressed to patient's and her spouse's satisfaction. Status: Acute Attestations Medical Necessity Statement*: Observation status for postoperative pain control and awaiting upper GI study Time Spent in Patient Care: 16 - 35 minutes Coding Level of Care Code Acute Cattle Sticker for Chg Fwd Diagnoses Status post laparoscopic Colin fundoplication Z98.890
--- NOTE | 2022-02-10 07:44 | ECG_ITS ---
[facility] Test Date: 2022-02-10 Pat Name: Liliana Oneil Department: Room: 250 Gender: Female Transformation Coach: : 1950 Requested By: Jose E Stout Order Number: [id number] Shyanne MD: Mehran Philip M.D. Measurements Intervals [place] Rate: 76 P: 7 TN: 159 QRS: -18 QRSD: 113 T: -13 QT: 403 QTc: 455 Interpretive Statements SINUS RHYTHM MODERATE INTRAVENTRICULAR CONDUCTION DELAY [110+ ms QRS DURATION] MINIMAL VOLTAGE CRITERIA FOR LVH, CONSIDER NORMAL VARIANT [MEETS CRITERIA IN ONE OF: R(aVL), S(V1), R(V5), R(V5/V6)+S(V1)] Compared to ECG 02/03/2022 13:58:43 T-wave abnormality no longer present Electronically Signed On 02-10-2022 23:31:56 CDT by Mehran Philip M.D. [id number]
[2022-02-10] MEDS: acetaminophen 1,000 MG/100 ML PIGGYBACK 400 MG IV (07:46)
--- NOTE | 2022-02-10 08:00 | FL_ITS ---
WS: [id number] Esophagram with upper GI series, 02/10/2022 Clinical Data: Status post laparoscopic paraesophageal hernia repair Comparison: Esophagram, 12/21/2021. Fluoroscopy time: 1min 3.0sec # of spot films: 7 Findings: The patient had difficulty initiating swallowing but did ingest small mouthfuls of barium. There were tertiary contractions throughout the entire esophagus. There were radiopaque surgical clips at the g astroesophageal junction. The stomach is dilated with an air-fluid level. There is no extravasation o r obstruction. There were clips adjacent to the distal stomach. There is pleural reaction and a small left effusion. There is minimal subcutaneous air adjacent to the left side of the abdomen at the lev el of the stomach. There are radiopaque clips adjacent to the distal stomach. FL/IA upper GI series 49312 Impression: 1. Tertiary contractions of the entire esophagus. 2. Repair of paraesophageal hiatal hernia. 3. Dilatation of the stomach. 4. Negative for esophageal or stomach extravasation or obstruction of contrast.
[2022-02-10] MEDS: diatrizoate meglumine 30 mL Sol PO (08:40)
[2022-02-10 08:50] VITALS: PULSE 79; RESP 18; O2SAT 94
[2022-02-10] MEDS: metoprolol succinate ER (24 HR) 50 mg Tablet PO (10:17)
--- NOTE | 2022-02-10 11:04 | PC.CHAP ---
Pastoral Care Encounter/Spiritual Assessment Type of Contact [] Declined inspector tubes visit [] Patient/Family/Request visit [] Outpatient visit [] Follow-up visit [] Physician referral [] Code/Alert [x] Routine visit [] Staff referral [] Actively dying [] Patient sleeping [] Family support [] [] Out of room [] Palliative care [] [] Receiving care in room [] Pre-surgical visit [] Trauma [] Long length of stay [] ICU visit [] Other: Relational/Emotional Strength [x] Patient feels connected with others/family/visitors/staff [] Distress [] Loneliness/isolation [] Abandonment Spirituality of Patient [x] Person of Madisyn [] Attends Sabianist of their Madisyn [x] Believes in Prayer [] Reads Bible or Episcopal materials [] There are Spiritual issues to be addressed Construction Sales Manager Interventions x[] Prayer [x] Active listening [x] Non-anxious presence [] Spiritual/emotional support [] Crisis/trauma care [] Spiritual counseling [] Bereavement support [] Provided bereavement packet [] Provided Bible/devotional materials [] Provided toy/stuffed animal, coloring book to patient or family member [] Provided Communion [] Anointing/[place] [] Salvation [x] Completed spiritual assessment [] Other: Impact on Illness or Injury [] Angry [] Fearful [] Anxious [] Often cries [] Exhaustion [] Unable to work [] Unable to attend protestant [] Unable to walk/stand [] Unable to read [] Unable to drive [] Unable to eat/drink [] Unable to sleep [] Unable to be with family [] Patient intubated [] Other: Summary Time spent with patient 10 min
[2022-02-10 16:00] VITALS: BP 117/73; PULSE 85; RESP 13; O2SAT 91
[2022-02-10 19:05] VITALS: BP 113/71; PULSE 81; RESP 17; TEMP 36.8; O2SAT 92
[2022-02-10] MEDS: acetaminophen 650 mg/20.3 mL UDC PO (19:39)
[2022-02-11] MEDS: sodium chloride 0.9% 1,000 ML 75 ML IV (00:08)
[2022-02-11] MEDS: heparin 5,000 unit/mL INJ 1 mL 5000 UNIT SUBCUT (00:08)
[2022-02-11] MEDS: ampicillin-sulbactam 3 GM in sodium chloride 0.9% (plus) 50 ML IV ×2 (00:09→06:19)
[2022-02-11 03:24] LABS: Hematocrit 32.4 % (37.0-47.0); Hemoglobin 10.1 g/dL (11.5-15.3)
[2022-02-11 03:45] LABS: Anion Gap 11.7 (5-19); Blood Urea Nitrogen 12 mg/dL (8-23); Calcium 8.2 mg/dL (8.5-10.5); Carbon Dioxide 25 mmol/L (22-29); Chloride 108 mmol/L (98-107); Creatinine Clr Calc Pharmacy 72.9426; Glomerular Filtration Rate 99.1 mL/min (90-130); Glucose 91 mg/dL (65-115); Osmolality Calculated 291 mOsm/kg (285-295); Potassium 3.7 mmol/L (3.5-5.1); Sodium 141 mmol/L (136-145)
[2022-02-11 04:00] VITALS: BP 131/67; PULSE 92; RESP 17; TEMP 36.7; O2SAT 90
[2022-02-11 07:02] VITALS: BP 125/79; PULSE 80; RESP 12; TEMP 36.9; O2SAT 93
[2022-02-11] MEDS: morphine 4 mg/mL SDV 1 mL 2 MG IVP (07:52)
[2022-02-11] MEDS: metoprolol succinate ER (24 HR) 50 mg Tablet PO (07:52)
--- NOTE | 2022-02-11 11:35 | P.SS_ITS ---
Short Stay Summary Providers Date of Admit/Discharge: 02/13/22 Attending Provider: Jose E Stout MD Primary Care Provider: Nieves Perera NP Chief Complaint: paraesophageal hernia HPI History of Present Illness This is a pleasant 71-year-old female with associated history of sensorineural hearing loss of both ears, tinnitus of both ears, TMJ arthralgia.? Patient referred to my practice with symptomatic paraesophageal hernia.? As she does have difficulty in eating and keeping things down.? She did undergo a CT scan of the lung back in September 2021 that showed lung nodules in addition to pulmonary hyperexpansion from emphysema in addition to large hiatal hernia with mild increase in the thoracic kyphosis. Subsequent the patient undergone barium swallow in December 21, 2021 that showed 1. Patent esophagus. No evidence of the esophageal stricture or mass. Normal esophageal motility. No reflux identified during fluoroscopy. 2. Large paraesophageal hiatal hernia comprising about two thirds of the stomach. Probable gastritis. Patient is referred to my practice for further evaluation potential intervention with a current weight of 190 pounds and a BMI of 29.7. Ultrasound of the liver and gallbladder is pending.? Patient undergone an EGD by Dr. Hunter and was found to have normal esophagus with large hiatal hernia yet the duodenum was not examined due to the difficulty of the anatomy. Patient was evaluated and was consulted for laparoscopic paraesophageal hernia repair with Colin fundoplication and possible mesh placement and intraoperative EGD. Review of Systems General: Reports: 10 or more systems reviewed and unremarkable except in HPI and below Home Meds/Allergies Home Medications and Allergies Home Medications Medication Instructions Recorded Confirmed Type azelastine 137 mcg (0.1 %) nasal 1 spray INTRANASAL DAILY ml 04/23/21 02/09/22 History spray aerosol fluticasone propionate 50 1 spray INTRANASAL DAILY 04/23/21 02/09/22 History mcg/actuation nasal spray,suspension (Allergy Relief (fluticasone)) metoprolol succinate 50 mg 50 mg PO DAILY 04/23/21 02/09/22 History tablet,extended release 24 hr valsartan 160 mg tablet 320 mg PO DAILY 04/23/21 02/09/22 History indapamide 2.5 mg tablet 2.5 mg PO QAM 12/15/21 02/09/22 History omeprazole 20 mg capsule,delayed 20 mg PO BID 12/15/21 02/09/22 History release umeclidinium 62.5 mcg-vilanterol 1 inh INHALATION DAILY 12/17/21 02/09/22 History 25 mcg/actuation powdr for inhalation (Anoro Ellipta) Allergies Allergy/AdvReac Type Severity Reaction Status Date / Time amlodipine Allergy Severe rash and Verified 02/13/22 15:17 swelling budesonide [From Symbicort] Allergy Severe hives Verified 02/13/22 15:17 fluticasone furoate Allergy Severe hypertensio Verified 02/13/22 15:17 [From Trelegy Ellipta] n formoterol [From Symbicort] Allergy Severe hives Verified 02/13/22 15:17 umeclidinium Allergy Severe hypertensio Verified 02/13/22 15:17 [From Trelegy Ellipta] n vilanterol Allergy Severe hypertensio Verified 02/13/22 15:17 [From Trelegy Ellipta] n lisinopril Allergy Intermediate dry cough Verified 02/13/22 15:17 PFSH Acute PFSH: Medical History 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 Family History Other Hypertension Social History Smoking and tobacco status: never smoked Vitals/I&O/Wt Last Vital Signs Temp 98.4 F 02/11/22 07:02 Pulse 80 02/11/22 07:02 Resp 12 02/11/22 07:02 BP 125/79 02/11/22 07:02 Pulse Ox 93 02/11/22 07:02 02/10/22 02/11/22 02/11/22 22:59 06:59 14:59 Intake Total 1220 / 1630 50 / 1680 310 / 310 Output Total 220 / 470 Balance 1000 / 1160 50 / 1210 310 / 310 Physical Exam Narrative: Patient is conscious alert oriented X3 No apparent distress BMI 28.2 Head and neck examination PERRLA no masses no cervical lymphadenopathy no jaundice Cardiac examination audible S1-S2 no murmurs no gallops no arrhythmias Chest is clear bilateral,abscence of? Rhonchi or wheezes, mild upper chest? emphysema Abdomen nontender except at the incision site nondistended soft no organomegaly guarding or rigidity/no signs of peritonitis. Skin incisions are clean dry and intact and skin raisa in place Extremities no cyanosis no clubbing no edema Urinary Catheter Management: Graves: Cath Placed During This Visit: yes, but has since been removed by the nurse Reason for Continuing Indwelling Catheter: Not indwelling catheter Urinary Catheter Date of Insertion: 02/09/22 Urinary Catheter Time of Insertion: 10:25 Date Urinary Catheter Removed: 02/10/22 Time Urinary Catheter Discontinued: 08:00 Hospital Course Hospital Course Patient postoperatively did well and had her pain under control mostly Tylenol. Continue to have stable vital signs and adequate urine output. Graves catheter was taken first day after surgery and patient did undergo an upper GI study that did show 1. Tertiary contractions of the entire esophagus. 2. Repair of paraesophageal hiatal hernia. 3. Dilatation of the stomach. 4. Negative for esophageal or stomach extravasation or obstruction of contrast. Patient was started on clear liquid diet and tolerated it well. Broad-spectrum antibiotics were placed empirically as the patient had extensive dissection. Patient met the appropriate and safe criteria to discharge home. With specific post Colin diet education was given to the patient prior to surgery in the [facility]. Discharge Summary This is a pleasant 71 years old female patient undergone uneventful laparoscopic paraesophageal hernia repair without mesh placement and intraoperative EGD with Colin fundoplication. Patient met the appropriate criteria for safe discharge home with specific education about post Colin diet. Patient was ambulatory during the hospital stay and was able to void urine without Graves catheter. Blood work was appropriate with stable H&H and no evidence of shortness of breath. SSS Data Data Completed and Pending: Completed Studies During Hospitalization Category Date Time Status [place] [id number] Routine Exams 02/10/22 08:00 Completed Pending at discharge Category Date Time Status ES surgery / GI i mages Routine Exams 02/09/22 10:06 Taken Basic Metabolic P dalila AM LABS Lab 02/12/22 04:00 Ordered Hemoglobin and He matocrit AM LABS Lab 02/12/22 04:00 Ordered Pathology: Surgic al [PTH] Routine Pth 02/09/22 16:40 Received Procedures Performed: [id number] [address] Operative Note Signed Patient: Liliana Oniel Age/Sex: 71 / F ADM Date: 02/09/22 [facility]2 Encounter Date: 02/09/[address]: Jose E Stout MD Report Number: [id number] Operative Report Date of procedure: February 09, 2022 Pre-op diagnosis: Preop Diagnosis ? Paraesophageal hernia ? 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 taken to the operating room where the patient was placed in supine position, intubated by anesthesia prophylactic antibiotics were given per protocol,Time-out was done verifying the patient's name/date of /planned procedure? and destination after the procedure, all were in agreement.? SCDs confirmed to be functioning, preoperative antibiotics administered per protocol, and beta caleb protocol was confirmed ?patient was placed in a low lithotomy position, both arms were tucked to the sides.and all pressure points were padded,? a Graves catheter was placed by the circulating nurse that revealed clear urine. The patient was appropriately secured to the operating table, and I asked anesthesia to swing the table [id number] in different positions that the patient is appropriately secured to the OR table which it was the case. Prep and drape of the abdomen was done under the usual sterile technique, started by 1.2 cm transverse incision with 15 blade knife, 12 cm below the xiphoid and 3 cm to the left of the midline, followed by that a 5 mm optical trocar was used under direct vision and placed in the peritoneal cavity without difficulty.? The peritoneal cavity was insufflated with CO2 gas up to 15 mmHg, followed by that an angled scope 10 mm was inserted in the abdominal cavity, the abdomen was surveyed there was no evidence of blood or fluid or other evidence of intra-abdominal injury Following that two 5 mm ports were placed one at 10 cm from the xiphoid process under the left subcostal region and the other one was placed at the left flank.? A 12 mm port was placed in the subxiphoid region towards the right upper subcostal region.? A right upper quadrant incision was created with a 15 blade knife and the obturator of 5 mm trocar was used to have an access to the abdominal cavity under direct visualization where a Chrissie's liver retractor was introduced through this stab incision placed underneath the left lobe of the liver and onto the diaphragm to lift the liver up and liver retractor was placed under direct visualization to lift the liver up and helped greatly for appropriate visualization of the hiatus. Patient was placed in steep reverse T Reese and I stood between the patient's legs. The index 5 mm trocar was switched to 12 mm trocar under direct vision I Started at that point delivering the Hiatal Hernia content most of the stomach was opened the chest about two third associated also with a mediastinal lipoma.? Started dissecting using the harmonic scalpel near the caudate lobe and right deysi of the diaphragm where it was identified.? Dissection was continued around the border of the deysi from the right side to the left side circumferentially, dissection was done as the sac was adherent to the stomach and up in the chest.? The mediastinal lipoma was dissected and excised.? And was sent for permanent pathology After appropriate dissection circumferentially and the short gastrics were taken down, a Bellwood drain was passed behind the esophagus from the right side to the left side ends of the Raleigh was secured in place and was held down to assist in retraction for better navigation.? At that point once dissection and reduction of the hernia? was complete, a portion of the hernia sac was dissected was taken out and sent for pathology for permanent.? Few 5 mm clips were used to approximate the pleural edges in the chest There was 3-4 cm of the esophagus now is intra-abdominal after appropriate d issection being with no tension. ?A well-lubricated bougie was inserted 54 Serbian in size, by the anesthesiologist without difficult, to be used as a template to prevent narrowing of the esophagus. The posterior crura was reapproximated with 2-0 Ethibond sutures with pledgets.This closed the hiatal defect leaving an opening that of the submits the esophagus to pass through comfortably.? Additional anterior sutures were applied to approximate the edges of the crura. I found a loose fundus that I was able to grab the stomach around the GE junction from the left side to the right side.Shoeshine technique was applied at this point to make sure that the wrap carries no tension.First 2 stitches were taken stomach esophagus stomach, the the third stitch was stomach to stomach using 2-0 silk sutures about 1 cm apart. Approximation of the crura anteriorly was obtained by 2-0 silk sutures interrupted A 360? fundoplication was noted from securing the fundus to either side of the esophagus.The length was about 3-4 cm and followed by that an upper GI scope by me after I scrubbed out was introduced from the mouth down to the esophagus to the stomach preceded by bougie was taken out to make sure that there was no injury damage happened with the bougie, there was no blood on the tip of the bougie as well,nothing of significance, stomach looked fine was no injury and the wrap looked appropriate from within there was no evidence of leak. I scrubbed back in after adequate hemostasis the liver retractor was taken out under direct visualization, final laparoscopic survey was done showing no injuries to intra-abdominal structures, the 12 mm trocar sites were closed by Miguel Stuart under direct visualization using #1 PDS sutures,following that a TAP Block was done using Exparel then all ports were removed and both 12 mm ports.The rest of the stab incisions were closed by skin raisa, followed by Band-Aids and patient tolerated the procedure well. Bilateral TAP (transversus abdominous plain peripheral nerve block )block using Exparel 20 mL Exparel 40 ml Normal saline 20 ml bupivacaine 0.25% 30 mL on each side injected 20 mL injected the port sites The count of instruments,needles and sponges was completed at the end of the procedure. Graves catheter was kept at the end of the procedure without complications I was present for the whole entire procedure patient was extubated and was taken to the recovery room in stable condition. Dictated By: Jose E Stout MD Signed By: Jose E Stout MD Signed Date/Time: 02/10/22 070 DD/ 1603 Diagnoses at Discharge Discharge Diagnosis (1) Status post laparoscopic Colin fundoplication: Status: Resolved Discharge Plan Discharge Patient Disposition: Home Condition: Stable Prescriptions: New ondansetron 4 mg tablet,disintegrating 4 mg PO Q8H PRN (Reason: nausea and vomiting) Qty: 30 2RF Continued omeprazole 20 mg capsule,delayed release(DR/EC) 20 mg PO BID 0RF indapamide 2.5 mg tablet 2.5 mg PO QAM 0RF metoprolol succinate 50 mg tablet extended release 24 hr 50 mg PO DAILY 0RF valsartan 160 mg tablet 320 mg PO DAILY 0RF azelastine 137 mcg (0.1 %) aerosol,spray 1 spray intranasal DAILY 0RF Rx Instructions: administer into each nostril fluticasone propionate [Allergy Relief (fluticasone)] 50 mcg/actuation spray,suspension 1 spray intranasal DAILY 0RF Rx Instructions: administer into each nostril clonidine HCl 0.1 mg tablet 0.1 mg PO Q8H PRN (Reason: hypertensive emergency) Qty: 60 0RF Anoro Ellipta 62.5-25 mcg/actuation Blister With Device 1 inh INHALATION DAILY 0RF Discharge Orders: Discharge Order (Routine); Ordered 02/11/22 Ordered By: Jose E Stout Referrals: Jose E Stout MD [Physician] - 02/18/22 1:15 pm (Return to surgery office in 1 week) Discharge Diet: As Directed Discharge Activity: Limit activity as instructed Patient Instructions: Ondansetron (By mouth), Laparoscopic Hiatal Hernia Repair (GEN) Activity Restrictions/Additional Instructions: Post discharge instructions: 1. Patient can shower after 48 hours from surgery. Do not soak in bathtub, swimming pool or hot tub for 4 weeks after surgery. 2. Leave incisions open to air, do not apply triple antibiotic ointment or medications on the incisions. 3. Up and walking as tolerated Activity 4. Do not lift more than 5 pounds first 2 weeks after surgery and not more than 25 pounds 6 to 8 weeks after surgery. Driving 5. Do not operate heavy machinery or drive while using pain medications Diet Clear liquid diet for the first 5 days after surgery then advance to full liquid diet till the patient comes in see me in the office Avoid straws, chewing gums or crackers to prevent gas built in the stomach Pain control Patient prefers Tylenol liquid form Nausea Nausea is common after surgery, take nausea medications as needed and stay on a liquid bland diet until nausea resolves. Breathing Patient was encouraged and was given incentive spirometer to use at home 10 times an hour while awake Call the office at [phone] during office hours or go the Emergency Room after hours for - ?Fever to 100.4 or greater ?Shaking chills ?Pain that increases over time ?Redness, warmth, or pus draining from incision sites ?Persistent nausea or inability to take in liquids Attestations Medical Necessity Statement*: Patient was placed in observation status for postoperative care. Time Spent in Patient Care*: greater than 30 min Specific Discharge Activities: Specific discharge activities: educating patient, educating and/or supporting family/caregiver and evaluating patient/rev iewing data Status at Discharge: Cognitive status at discharge: cognitively intact , Behavioral status at discharge: cooperative , Functional status at discharge: independent ambulation Overall status at discharge: patient is progressing back to baseline Quality Metrics Clinical Quality Measures: [ No reported AMI, CVA or VTE this stay ] Coding Level of Care Code Acute Brake Repairer Bus for Chg Fwd Diagnoses Status post laparoscopic Colin fundoplication Z98.890
[2022-02-11 12:53] VITALS: BP 125/79; PULSE 80; RESP 12; TEMP 36.9; O2SAT 93
== END 2022-02-11 12:54 | disposition home or self-care (01) ==
LOC: MEDSURG 16:12
PROVIDERS: Admitting Provider Surgery; PCP Nurse Practitioner Family; Visit Provider Surgery
PROC: 0DQ54ZZ Repair Esophagus, Percutaneous Endoscopic Approach (ICD-10-PCS; CPT 43281; principal; 2022-02-09 10:05)
PROC: 0DJ08ZZ Inspection of Upper Intestinal Tract, Via Natural or Artificial Opening Endoscopic (ICD-10-PCS; CPT 43235; 2022-02-09 10:05)
DX: K44.9 Diaphragmatic hernia without obstruction or gangrene (principal); D17.79 Benign lipomatous neoplasm of other sites; J44.9 Chronic obstructive pulmonary disease, unspecified; K21.9 Gastro-esophageal reflux disease without esophagitis
CPT/HCPCS: 43281; 36415; 36416; 51702; 74240; 80048; 82962; 85014; 85018; 88302; 88304; 93005; 96372; C9290; G0378; J0295; J0690; J1100; J1644; J2250; J2270; J2405; J2704; J2710; J3010; J3490; J7030; Q9963

== ENCOUNTER → 2022-02-18 12:55 | Outpatient (BNVA) | payer MEDICARE, SELFPAY | PROVIDERS: PCP Nurse Practitioner Family; Visit Provider Surgery | DX: Z98.890 Other specified postprocedural states (principal) ==

== ENCOUNTER → 2022-03-03 10:49 | Outpatient (BNVA) | payer MEDICARE, SELFPAY | PROVIDERS: PCP Nurse Practitioner Family; Visit Provider Surgery | DX: Z98.890 Other specified postprocedural states (principal) ==

== ENCOUNTER → 2022-05-05 07:54 | Outpatient (BNVA) | payer MEDICARE, SELFPAY | PROVIDERS: PCP Nurse Practitioner Family; Visit Provider Surgery | DX: Z98.890 Other specified postprocedural states (principal) | CPT/HCPCS: 99024 ==

== ENCOUNTER → 2023-07-21 10:18 | Outpatient (BNVA) | payer MEDICARE, SELFPAY | PROVIDERS: PCP Family Medicine; Visit Provider Surgery | DX: R11.0 Nausea (principal); R10.9 Unspecified abdominal pain; R19.7 Diarrhea, unspecified | CPT/HCPCS: 99213 ==

== ENCOUNTER 2023-08-11 07:20 | Day surgery (SDC) | payer MEDICARE, SELFPAY ==
[2023-08-09 11:02] VITALS: BMI 20.8
[2023-08-11 07:57] VITALS: BP 157/61; PULSE 70; RESP 18; TEMP 36.4; O2SAT 98
[2023-08-11] MEDS: sodium chloride 0.9% 1,000 ML 30 ML IV (07:57)
--- NOTE | 2023-08-11 09:42 | W.PM.OPSUD ---
Surgery/Procedure H&P Update DATE OF PROCEDURE: August 11, 2023 DATE H&P PERFORMED: 07/21/23 H&P UPDATE INFORMATION: I have reviewed H&P completed within last 30 days, I have examined patient prior to procedure and No changes to prior documentation PLANNED PROCEDURE: Operation Date: 08/11/23 08:30 Proposed Procedures p [id number] egd [id number] colon R11.0,R10.9,R19.7(Not Applicable) - DO niya Cheng Colonoscopy(Not Applicable) - Colt Armenta DO
[2023-08-11 10:17] VITALS: BP 102/50; PULSE 55; RESP 16; TEMP 36.6; O2SAT 99
[2023-08-11 10:22] VITALS: BP 131/61; PULSE 54; RESP 18; O2SAT 100
[2023-08-11 10:32] VITALS: BP 128/58; PULSE 56; RESP 18; O2SAT 100
--- NOTE | 2023-08-11 10:34 | PC.NURSE ---
patient has glasses, dentures, jewelry and all personal belongings.
--- NOTE | 2023-08-11 12:46 | P.ANESASSM_ITS ---
Pre-Anesthetic Assessment Height/Weight: Height 1.7 m Weight 60.328 kg Temp Pulse Resp BP Pulse Ox O2 Del Method 97.9 F 56 L 18 128/58 100 Room Air 08/11/23 10:17 08/11/23 10:32 08/11/23 10:32 08/11/23 10:32 08/11/23 10:32 08/11/23 10:32 Operation Date: 08/11/23 08:30 Proposed Procedures p [id number] egd [id number] colon R11.0,R10.9,R19.7(Not Applicable) - DO niya Cheng Colonoscopy(Not Applicable) - Colt Armenta DO Familial anesthetic complications: none Was Beta Tracey taken within 24 hours: Yes Was Clonidine taken within 24 hours: N/A Last intake: Intake Last Liquid Date 08/10/23 Last Liquid Time 21:00 Last Solid Date 08/09/23 Last Solid Time 18:00 Social No alcohol and No tobacco Exam alert, oriented x 3, clear to auscultation bilaterally and regular rate & rhythm Airway Submandibular: within normal limits Cervical ROM: within normal limits Mallampati: Class II Pulmonary Chronic Obstructive Pulmonary Disease CV/HEM Hypertension GI Gastroesophageal Reflux Disease Anesthetic Plan ASA status: 3 Anesthesia: MAC Medications/Allergies Home Medications Medication Instructions Recorded Confirmed Last Taken Type azelastine 137 mcg (0.1 %) nasal 1 spray intranasal DAILY PRN 04/23/21 08/09/23 02/08/22 History spray aerosol Allergy Symptoms fluticasone propionate 50 1 spray intranasal DAILY 04/23/21 08/09/23 08/09/23 History mcg/actuation nasal spray,suspension (Allergy Relief (fluticasone)) metoprolol succinate 50 mg 50 mg PO BEDTIME 04/23/21 08/09/23 08/10/23 History tablet,extended release 24 hr indapamide 2.5 mg tablet 2.5 mg PO QAM 12/15/21 08/09/23 08/09/23 History umeclidinium 62.5 mcg-vilanterol 1 inh inhalation DAILY 12/17/21 08/09/23 08/09/23 History 25 mcg/actuation powdr for inhalation (Anoro Ellipta) hydrochlorothiazide 12.5 mg tablet 12.5 mg PO DAILY 08/09/23 08/09/23 08/09/23 History lansoprazole 15 mg capsule,delayed 15 mg PO DAILY 08/09/23 08/09/23 08/09/23 History release Allergies Allergy/AdvReac Type Severity Reaction Status Date / Time amlodipine Allergy Severe rash and Verified 07/21/23 10:39 swelling budesonide [From Symbicort] Allergy Severe hives Verified 07/21/23 10:39 fluticasone furoate Allergy Severe hypertensio Verified 07/21/23 10:39 [From Trelegy Ellipta] n formoterol [From Symbicort] Allergy Severe hives Verified 07/21/23 10:39 umeclidinium Allergy Severe hypertensio Verified 07/21/23 10:39 [From Trelegy Ellipta] n vilanterol Allergy Severe hypertensio Verified 07/21/23 10:39 [From Trelegy Ellipta] n lisinopril Allergy Intermediate dry cough Verified 07/21/23 10:39 amoxicillin [From Augmentin] AdvReac Mild ADR-Diarrhe Verified 07/21/23 10:39 a clavulanic acid AdvReac Mild ADR-Diarrhe Verified 07/21/23 10:39 [From Augmentin] a [facility] Anesthesia Medical History (Updated 07/21/23 @ 10:55 by Colt Armenta DO) COPD (chronic obstructive pulmonary disease) Hiatal hernia Hypertension 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 Surgical History (Updated 07/21/23 @ 10:55 by Colt Armenta DO) History of colonoscopy History of esophagogastroduodenoscopy History of repair of hiatal hernia History of rotator cuff surgery Family History Other Hypertension Social History Smoking and tobacco/nicotine status: never used tobacco/nicotine Data Anesthesia Microbiology 08/11/23 10:03 Stool Lactoferrin - Final Stool Occult Blood (FIT) - Final Cardiac Studies: Echocardiogram 12/23/21
--- NOTE | 2023-08-11 12:47 | ANE.PACU2 ---
Inpatient post-anesthesia follow up: Airway intact: Yes Vital signs: Temperature 97.9 F Pulse Rate 56 Respiratory Rate 18 Blood Pressure 128/58 Pulse Oximetry 100 Oxygen Delivery Me thod Room Air Oxygen Flow Rate Fraction of Inspir ed Oxygen Nausea and vomiting: No Pain level: 2 Mental status: Baseline
== END 2023-08-11 11:05 | disposition home or self-care (01) ==
PROVIDERS: PCP Family Medicine; Visit Provider Surgery
PROC: 0DJ08ZZ Inspection of Upper Intestinal Tract, Via Natural or Artificial Opening Endoscopic (ICD-10-PCS; CPT 43235; principal; 2023-08-11 08:30)
PROC: 0DJD8ZZ Inspection of Lower Intestinal Tract, Via Natural or Artificial Opening Endoscopic (ICD-10-PCS; CPT 45378; 2023-08-11 08:30)
DX: R11.0 Nausea (principal); R19.7 Diarrhea, unspecified; R10.9 Unspecified abdominal pain; D12.0 Benign neoplasm of cecum; D12.3 Benign neoplasm of transverse colon; K29.50 Unspecified chronic gastritis without bleeding; K57.30 Diverticulosis of large intestine without perforation or abscess without bleeding; J44.9 Chronic obstructive pulmonary disease, unspecified; I10 Essential (primary) hypertension; K21.9 Gastro-esophageal reflux disease without esophagitis
CPT/HCPCS: 43239; 45380; 45385; 82274; 83630; 87045; 87177; 87209; 87324; 87427; 87449; 88305; J2704; J7030

== ENCOUNTER → 2023-08-24 15:23 | Outpatient (BNVA) | payer MEDICARE, SELFPAY | PROVIDERS: PCP Family Medicine; Visit Provider Surgery | DX: Z09 Encounter for follow-up examination after completed treatment for conditions other than malignant neoplasm (principal) | CPT/HCPCS: 99213 ==

== ENCOUNTER → 2023-10-11 09:15 | Outpatient (BNVA) | payer MEDICARE, SELFPAY | PROVIDERS: PCP Family Medicine; Visit Provider Surgery | DX: R10.9 Unspecified abdominal pain (principal); Z09 Encounter for follow-up examination after completed treatment for conditions other than malignant neoplasm; R19.7 Diarrhea, unspecified; R11.0 Nausea | CPT/HCPCS: 99214 ==

== ENCOUNTER 2023-11-03 09:44 | Outpatient (CLI) | payer MEDICARE, SELFPAY ==
--- NOTE | 2023-11-03 10:00 | NM_ITS ---
WS: [id number] NUCLEAR MEDICINE HIDA SCAN WITH GALLBLADDER EJECTION FRACTION HISTORY: abdominal pain COMPARISON: Gallbladder ultrasound 01/26/2022 TECHNIQUE: The patient was intravenously injected with 7.8 mCi of TC99m Mebrofenin. Immediate imaging over the right upper quadrant was followed by 5 minute image and additional images for a total of 60 minutes. Normal uptake of radiotracer throughout the liver. Activity identified in the gallbladder at 15 minutes and well distended by 60 minutes. Activity in the proximal small bowel was seen by 15 minutes. Good washout of the radiotracer from the liver by 60 minutes. The patient then drank 8 ounces of Ensure Plus. Ejection fraction at 72 minutes was 37%. Normal GB ej ection fraction is 35-75%. Post fatty meal symptoms: None. IMPRESSION: 1. Normal HIDA scan. 2. Decreased gallbladder ejection fraction. Consider gallbladder dyskinesia.
== END 2023-11-03 09:45 | disposition home or self-care (01) ==
PROVIDERS: PCP Family Medicine; Visit Provider Surgery
DX: R10.9 Unspecified abdominal pain (principal)
CPT/HCPCS: 78227; A9537

== ENCOUNTER 2023-11-24 07:20 | Day surgery (SDC) | payer MEDICARE, SELFPAY ==
--- NOTE | 2023-11-03 16:15 | SUR.PREOP ---
1555 called pt to do pre-op and she stated that she hasn't seen Dr Armenta and wants to talk to him on Tuesday before having surgery
[2023-11-24] VITALS (10 sets, daily range): BP systolic 125–154; BP diastolic 41–80; PULSE 50–75; RESP 13–26; TEMP 36.3–37; O2SAT 95–100; BMI 20.9
[2023-11-24] MEDS: sodium chloride 0.9% 1,000 ML 30 ML IV (07:50)
--- NOTE | 2023-11-24 08:08 | PM.HP ---
Providers/Chief Complaint Primary Care Provider: Christian Sanchez MD Chief Complaint: R10.9 History of Present Illness Liliana Oneil is a 73 year old female Review of Systems General: Reports: 10 or more systems reviewed and unremarkable except in HPI and below Medications/Allergies Home Medications Medication Instructions Recorded Confirmed Last Taken Type azelastine 137 mcg (0.1 %) nasal 1 spray intranasal DAILY PRN 04/23/21 11/24/23 11/23/23 History spray aerosol Allergy Symptoms fluticasone propionate 50 1 spray intranasal DAILY 04/23/21 11/24/23 11/23/23 History mcg/actuation nasal spray,suspension (Allergy Relief (fluticasone)) metoprolol succinate 50 mg 50 mg PO BEDTIME 04/23/21 11/24/23 11/23/23 History tablet,extended release 24 hr indapamide 2.5 mg tablet 2.5 mg PO QAM 12/15/21 11/24/23 11/23/23 History umeclidinium 62.5 mcg-vilanterol 1 inh inhalation DAILY 12/17/21 11/24/23 11/23/23 History 25 mcg/actuation powdr for inhalation (Anoro Ellipta) hydrochlorothiazide 12.5 mg tablet 12.5 mg PO DAILY 08/09/23 11/24/23 11/23/23 History lansoprazole 15 mg capsule,delayed 15 mg PO DAILY 08/09/23 11/24/23 11/23/23 History release Allergies Allergy/AdvReac Type Severity Reaction Status Date / Time amlodipine Allergy Severe rash and Verified 10/11/23 09:19 swelling budesonide [From Symbicort] Allergy Severe hives Verified 10/11/23 09:19 fluticasone furoate Allergy Severe hypertensio Verified 10/11/23 09:19 [From Trelegy Ellipta] n formoterol [From Symbicort] Allergy Severe hives Verified 10/11/23 09:19 umeclidinium Allergy Severe hypertensio Verified 10/11/23 09:19 [From Trelegy Ellipta] n vilanterol Allergy Severe hypertensio Verified 10/11/23 09:19 [From Trelegy Ellipta] n lisinopril Allergy Intermediate dry cough Verified 10/11/23 09:19 PFSH Acute PFSH: Medical History COPD (chronic obstructive pulmonary disease) Hiatal hernia 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 Hypertension Surgical History History of rotator cuff surgery History of esophagogastroduodenoscopy History of colonoscopy History of repair of hiatal hernia Family History Other Hypertension Social History Smoking and tobacco/nicotine status: never used tobacco/nicotine Vitals/I&O/Wt Last Vital Signs Temp 97.4 F L 11/24/23 07:29 Pulse 66 11/24/23 07:29 Resp 16 11/24/23 07:29 BP 125/80 11/24/23 07:29 Pulse Ox 98 11/24/23 07:29 O2 Del Method Room Air 11/24/23 07:29 Weight last 48 hrs Weight 134 lb A&P Assessment and plan (1) Biliary dyskinesia: Plan Laparoscopic cholecystectomy The risks and benefits of the procedure, including but not limited to, bleeding, infection, scar, numbness, pain, damage to surrounding structures, damage to common bile duct requiring additional surgery, conversion to an open procedure, were explained to the patient. He is understanding of the risks and wishes to proceed. Attestations Medical Necessity Statement*: Home Coding Level of Care Code Acute Code for Chg Fwd Diagnoses Biliary dyskinesia K82.8
--- NOTE | 2023-11-24 08:17 | ANES.PREANE2 ---
Pre-Anesthetic Assessment Height/Weight: Height 1.7 m Weight 60.781 kg Temp Pulse Resp BP Pulse Ox O2 Del Method 97.4 F L 66 16 125/80 98 Room Air 11/24/23 07:29 11/24/23 07:29 11/24/23 07:29 11/24/23 07:29 11/24/23 07:29 11/24/23 07:29 Operation Date: 11/24/23 08:55 [place] [address]97 lap yoli R10.9(Not Applicable) - Colt Armenta DO Familial anesthetic complications: none Was Beta Tracey taken within 24 hours: N/A Was Clonidine taken within 24 hours: N/A Last intake: Intake Last Liquid Date 11/23/23 Last Liquid Time 00:00 Last Solid Date 11/23/23 Last Solid Time 21:30 Social No alcohol and No tobacco Exam alert, oriented x 3, clear to auscultation bilaterally and regular rate & rhythm Airway Submandibular: within normal limits Cervical ROM: within normal limits Mallampati: Class II Dentition: false Comments: Comments: TMJ Pulmonary Chronic Obstructive Pulmonary Disease CV/HEM Hypertension GI Gastroesophageal Reflux Disease Anesthetic Plan ASA status: 2 Anesthesia: General Medications/Allergies Home Medications Medication Instructions Recorded Confirmed Last Taken Type azelastine 137 mcg (0.1 %) nasal 1 spray intranasal DAILY PRN 04/23/21 11/24/23 11/23/23 History spray aerosol Allergy Symptoms fluticasone propionate 50 1 spray intranasal DAILY 04/23/21 11/24/23 11/23/23 History mcg/actuation nasal spray,suspension (Allergy Relief (fluticasone)) metoprolol succinate 50 mg 50 mg PO BEDTIME 04/23/21 11/24/23 11/23/23 History tablet,extended release 24 hr indapamide 2.5 mg tablet 2.5 mg PO QAM 12/15/21 11/24/23 11/23/23 History umeclidinium 62.5 mcg-vilanterol 1 inh inhalation DAILY 12/17/21 11/24/23 11/23/23 History 25 mcg/actuation powdr for inhalation (Anoro Ellipta) hydrochlorothiazide 12.5 mg tablet 12.5 mg PO DAILY 08/09/23 11/24/23 11/23/23 History lansoprazole 15 mg capsule,delayed 15 mg PO DAILY 08/09/23 11/24/23 11/23/23 History release Allergies Allergy/AdvReac Type Severity Reaction Status Date / Time amlodipine Allergy Severe rash and Verified 10/11/23 09:19 swelling budesonide [From Symbicort] Allergy Severe hives Verified 10/11/23 09:19 fluticasone furoate Allergy Severe hypertensio Verified 10/11/23 09:19 [From Trelegy Ellipta] n formoterol [From Symbicort] Allergy Severe hives Verified 10/11/23 09:19 umeclidinium Allergy Severe hypertensio Verified 10/11/23 09:19 [From Trelegy Ellipta] n vilanterol Allergy Severe hypertensio Verified 10/11/23 09:19 [From Trelegy Ellipta] n lisinopril Allergy Intermediate dry cough Verified 10/11/23 09:19 Current Medications Generic Name Dose Route Start Last Admin Trade Name Freq PRN Reason Stop Dose Admin Sodium Chloride 1,000 mls @ 30 mls/hr 11/24/23 07:30 11/24/23 07:50 Sodium Chloride 0.9% IV 11/25/23 07:29 30 mls/hr .Q24H DEBI Administration PFSH Anesthesia Medical History COPD (chronic obstructive pulmonary disease) Hiatal hernia 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
[2023-11-24] MEDS: ceFAZolin 2,000 MG in sodium chloride 0.9% (plus) 50 ML 100 MG IV (09:24)
[2023-11-24] MEDS: lidocaine-epi 2% 20 mL INJ INJECTION (09:55)
--- NOTE | 2023-11-24 10:00 | P.OP_ITS ---
Operative Report Date of procedure: November 24, 2023 Surgeon: Colt Armenta DO Brief History: Very pleasant 73-year-old female who has been having right upper quadrant Manny pain rating to her back with nausea and vomiting off and on for months now. Workup revealed biliary dyskinesia. Laparoscopic cholecystectomy was indicated. The risk and benefits were explained and documented. Procedure: Preoperative diagnosis: Biliary dyskinesia Postoperative diagnosis: Same Procedure performed: Laparoscopic cholecystectomy Surgeon: Dr. Colt Armenta DO Estimated blood loss: 5 mL Specimens: Gallbladder to pathology Complications: None apparent Description of procedure: Patient was wheeled into the operative room and placed on the OR table in a supine position. Abdomen was inspected prepped and draped in usual sterile fashion. Time-out was performed and all present were in agreement. A 15 blade scalp was used to make a stab incision in the left upper quadrant and intra- abdominal insufflation was achieved using a Veress needle. After localizing the tissue incisions were made and a 5 millimeter trocar was placed into the umbilicus as well as 2 in the right upper quadrant. A 12 millimeter trocar was placed in the epigastrium. Gallbladder was grasped and elevated. The triangle of Calot was carefully dissected using blunt dissection and electrocautery until the triangle of Calot clearly identified. The cystic duct was clipped proximally and double clipped distally. The duct was then ligated proximally. The cystic artery was doubly clipped and ligated. The gallbladder was then removed from the liver bed using electrocautery. The gallbladder was removed from the abdomen using an Endo-Catch bag through the epigastric incision. The liver bed was inspected and no bleeding was seen. The abdomen was irrigated and suctioned. All ports removed. Skin was washed and dried. Incisions were closed with 4-0 Monocryl in a subcuticular interrupted fashion. Skin glue was applied. Patient tolerated the procedure well.
--- NOTE | 2023-11-24 15:49 | ANE.PACU2 ---
Inpatient post-anesthesia follow up: Airway intact: Yes Vital signs: Temperature 98.3 F Pulse Rate 50 Respiratory Rate 16 Blood Pressure 126/67 Pulse Oximetry 96 Oxygen Delivery Me thod Room Air Oxygen Flow Rate Fraction of Inspir ed Oxygen Hydration adequate: Yes Nausea and vomiting: Yes Pain level: 3 Mental status: Baseline
== END 2023-11-24 11:35 | disposition home or self-care (01) ==
PROVIDERS: PCP Family Medicine; Visit Provider Surgery
PROC: 0FT44ZZ Resection of Gallbladder, Percutaneous Endoscopic Approach (ICD-10-PCS; CPT 47562; principal; 2023-11-24 08:55)
DX: K80.10 Calculus of gallbladder with chronic cholecystitis without obstruction (principal); J44.9 Chronic obstructive pulmonary disease, unspecified; I10 Essential (primary) hypertension; K21.9 Gastro-esophageal reflux disease without esophagitis
CPT/HCPCS: 47562; 88304; J0690; J1100; J2371; J2405; J2704; J2710; J3010; J3490; J7030

== ENCOUNTER → 2023-12-05 08:16 | Outpatient (BNVA) | payer MEDICARE, SELFPAY | PROVIDERS: PCP Family Medicine; Visit Provider Surgery | DX: Z90.49 Acquired absence of other specified parts of digestive tract (principal); Z98.890 Other specified postprocedural states | CPT/HCPCS: 99024 ==

== ENCOUNTER → 2024-12-14 14:17 | Outpatient (BNVA) | payer MEDICARE, SELFPAY | PROVIDERS: PCP Family Medicine Adult Medicine; Visit Provider Family Medicine | DX: I10 Essential (primary) hypertension (principal); K21.9 Gastro-esophageal reflux disease without esophagitis; K91.89 Other postprocedural complications and disorders of digestive system; R19.7 Diarrhea, unspecified; D50.8 Other iron deficiency anemias | CPT/HCPCS: 80053; 82607; 83540; 84439; 84443; 85025 ==

== ENCOUNTER 2024-12-24 14:43 | Outpatient (CLI) | payer MEDICARE, SELFPAY ==
--- NOTE | 2024-12-24 15:00 | MM_ITS ---
WS: [id number] BILATERAL 3D TOMOSYNTHESIS DIGITAL SCREENING MAMMOGRAPHY WITH CAD CLINICAL INFORMATION: screening HISTORY: Screening mammogram. No current complaints. COMPARISON: 2021 TECHNIQUE: Bilateral CC and MLO views. FINDINGS: Scattered fibroglandular densities bilaterally. No suspicious focal mass, asymmetry, calcifications, or architectural distortion. No evidence of malignancy. Incidental punctate calcifications. MM/MM [facility] tomosynthesis [id number] IMPRESSION: DENSITY: There are scattered areas of fibroglandular density. BI-RADS: 2 - Benign. FOLLOW UP: 1 Year Follow-up Recommend return to annual screening mammography.
== END 2024-12-24 14:44 | disposition home or self-care (01) ==
PROVIDERS: PCP Family Medicine Adult Medicine; Visit Provider Family Medicine
DX: Z12.39 Encounter for other screening for malignant neoplasm of breast (principal); Z12.31 Encounter for screening mammogram for malignant neoplasm of breast; R92.323 Mammographic fibroglandular density, bilateral breasts; R92.1 Mammographic calcification found on diagnostic imaging of breast
CPT/HCPCS: 77063; 77067

== ENCOUNTER → 2025-03-29 09:04 | Outpatient (BNVA) | payer MEDICARE, SELFPAY | PROVIDERS: PCP Family Medicine; Visit Provider Family Medicine | DX: I10 Essential (primary) hypertension (principal); R73.01 Impaired fasting glucose; Z11.59 Encounter for screening for other viral diseases | CPT/HCPCS: 80061; 83036; 86803 ==

== ENCOUNTER 2025-05-15 16:32 | Outpatient (CLI) | payer MEDICARE, SELFPAY ==
--- NOTE | 2025-05-15 16:38 | CT_ITS ---
WS: [id number] CT facial bones wo con* [id number] REASON FOR EXAM: CHRONIC SINUSITIS IV CONTRAST ADMINISTERED: None. TECHNIQUE: Multiple thin section axial images without contrast. Coronal and sagittal reconstructions. TOTAL EXAM DLP: 1034.[address] scans at [facility] use at least one of these dose optimization techniques: automated exposure control; mA and/or kV adjustment per patient size (includes targeted exams where dose is matched to clinical indication); or iterative reconstruction. FINDINGS: Significant anterior nasal septal dextro deviation. Moderate enlargement of the superior and middle turbinates. Occlusion of the ostiomeatal complex bilaterally. Significant mucosal thickening in the maxillary and ethmoid sinuses. The right maxillary sinus is hypoplastic. The sphenoid and frontal sinuses are unremarkable. No bone abnormality. CT/CT facial bones wo con* [id number] IMPRESSION: Findings compatible with chronic inflammatory sinus disease with no focal lesio n.
== END 2025-05-15 16:33 | disposition home or self-care (01) ==
LOC: RAD 16:34
PROVIDERS: PCP Family Medicine; Visit Provider Otolaryngology
DX: J32.9 Chronic sinusitis, unspecified (principal)
CPT/HCPCS: 70486

== ENCOUNTER → 2025-05-20 09:56 | Outpatient (BNVA) | payer MEDICARE, SELFPAY | PROVIDERS: PCP Family Medicine; Visit Provider Family Medicine | DX: R63.4 Abnormal weight loss (principal); I10 Essential (primary) hypertension | CPT/HCPCS: 80053; 84439; 84443; 85025 ==

== ENCOUNTER → 2025-06-17 12:16 | Outpatient (BNVA) | payer MEDICARE, SELFPAY | PROVIDERS: PCP Family Medicine; Visit Provider Family Medicine | DX: R11.0 Nausea (principal); R63.4 Abnormal weight loss | CPT/HCPCS: 83690 ==